=== PATIENT | female | born 1980 | race Caucasian/White ===

== ENCOUNTER 2018-07-21 08:23 | Observation (INO) ==
[2018-07-21] MEDS ORDERED: Chlorhexidine Gluconate 2% 1 Pack (2 Cloths) TOPICAL ONE (09:15)
[2018-07-21] MEDS ORDERED: Metoprolol Tartrate 25 MG Tablet PO ONE (09:15)
[2018-07-21] MEDS ORDERED: Sodium Chlor 0.9% Inj 500 ML IV.CONT ONE (09:15)
[2018-07-21] MEDS ORDERED: Gentamicin Inj 120 MG in Sodium Chlor 0.9% Inj 100 ML IV.SIG SCH (09:30)
[2018-07-21] MEDS ORDERED: Famotidine PF Inj 20 MG/2 ML Vial IV.PUSH ONE (10:15)
[2018-07-21] MEDS ORDERED: Sugammadex Inj 200 MG/2 ML Vial IV.PUSH ONE (11:19)
[2018-07-21] MEDS ORDERED: HYDROmorphone PF Inj 2 MG/ML Vial ONE (11:20)
[2018-07-21] MEDS ORDERED: Bupivacaine/Epinephrine Inj 0.25% 50 ML Vial ONE (11:38)
[2018-07-21] MEDS ORDERED: Propofol Inj 500 MG/50 ML Vial ONE (11:54)
[2018-07-21] MEDS ORDERED: Lidocaine PF 1% Inj 5 ML Syringe OTHER ONE (12:10)
[2018-07-21] MEDS ORDERED: HYDROmorphone PF Inj 1 MG/ML Ampul IV.PUSH PRN (14:50)
[2018-07-21] MEDS ORDERED: fentaNYL Citrate Inj 100 MCG/2 ML Ampul ONE (14:55)
[2018-07-21] MEDS ORDERED: ALPRAZolam 0.25 MG Tablet PO PRN (14:56)
[2018-07-21] MEDS ORDERED: *Meperidine Inj 25 MG/ML Vial PERIprocedural Use ONLY ONE (14:59)
--- NOTE | 2018-07-21 15:06 | P.OP ---
- Preoperative Diagnosis (1) Dyspareunia due to medical condition in female (2) Dysmenorrhea (3) Menorrhagia - Postoperative Diagnosis (1) Dysmenorrhea (2) Dyspareunia due to medical condition in female Date of procedure: 07/21/18 Procedure: OLGA CHOI. Anesthesia: GETA Surgeon: Yovany Gomez MD Estimated blood loss (mL): 50 Operation and Findings: Findings exam under anesthesia revealed a small anteverted uterus there was no adnexal masses. Laparoscopic exam revealed a normal uterus fallopian tubes were ligated in the midportion bilaterally. The anterior cul-de-sac had quite a bit of scarring from the previous surgeries the ovaries were normal the posterior cul-de-sac was normal upper abdomen liver and gallbladder were normal. On the right side she had a double ureter. At the end of the case we examined the ureters bilaterally and there was no dilation and peristalsis was normal. Counts were correct Estimated blood loss 50 cc Fluids were crystalloid Procedure in detail patient was identified by name band and verbally and taken to the operating theater. She is given a general anesthetic prepped and draped in the usual sterile manner for a laparoscopic assisted supracervical hysterectomy. Her Pap and ultrasound were reviewed and were normal. Examination under anesthesia was carried out with the above findings and a speculum was placed into the vagina and the anterior lip of the cervix was grasped with a single-tooth tenaculum. The cervix was dilated since it was nulliparous and a Hulka clamp was placed without difficulty. Attention was turned to the umbilical area a small subumbilical incision was made and a local anesthetic was given the 5 mm trocar was used to enter the abdomen and a pneumoperitoneum was created with 3 L of CO2. Inferior lateral to the umbilicus on the left a 10 mm port and on the right 5 mm port were placed under direct vision using Marcaine as a local anesthetic. At this point we inspected the entire pelvis and abdomen the distal ends of the fallopian tubes were removed in toto and sent to pathology the taken down bilaterally to the level of the internal cervical loss the round ligaments were taken in this area close to the ureters we carefully dissected a bladder flap there is quite a bit of adhesions in this area but I wanted to not injure the ureters. We dissected the bladder down and pushed it well out of harm's way hopefully ureters out of at the level of the internal cervical loss the uterine vessels were skeletonized and taken with harmonic scalpel. The uterus blanched nicely and we began transecting the cervix with the harmonic scalpel the Hulka clamp was removed and the specimen was removed from the cervix. Small bleeders were coagulated and using the Kleppinger we burnt the endocervical canal to prevent future bleeding. Large amount of fluid was then used to irrigate and all pedicles were dry we then placed a morcellator into the 10 mm incision and morcellated the uterus and the proximal fallopian tubes and sent for pathologic evaluation at this point we irrigated again and inspected all surgical sites they were all dry we put a sponge stick into the vagina and the ovaries were well out of the way and she should not have future dyspareunia. At this point a piece of Interceed was placed over the surgery cervical stump and the laparoscope was removed under direct vision the 10 mm port was removed and a 2- 0 Vicryl was used to close that fascia and the skin incisions were then closed with a 4-0 Monocryl in a subcuticular manner the patient tolerated the procedure well and went to the recovery room in good condition,
[2018-07-21] MEDS: HYDROmorphone PF Inj 2 MG/ML Vial IV.PUSH PRN ×2 (16:30→19:56)
[2018-07-21] MEDS ORDERED: Zolpidem Tartrate 5 MG Tablet PO PRN (21:00)
[2018-07-22] MEDS: Ibuprofen 600 MG Tablet PO PRN ×2 (00:18→06:02)
[2018-07-22 05:53] LABS: Baso % (Auto) 0.2 % (0.0-2.0); Hemoglobin 12.4 gm/dL (11.6-15.3); Lymph # (Auto) 1.3 th/mm3 (1.0-4.8); Mean Corpuscular HGB Conc 34.4 % (32.0-36.0); Mean Corpuscular Hemoglobin 30.6 pg (27.0-34.0); Mean Corpuscular Volume 89.1 fL (80.0-100.0); Mean Platelet Volume 9.3 fL (7.0-11.0); Mono # (Auto) 0.9 th/mm3 (0.0-0.9); Mono % (Auto) 7.7 % (0.0-8.0); Neut # (Auto) 9.4 th/mm3 (1.8-7.7); Neut % (Auto) 81.1 % (16.0-70.0); Platelet Count 198 th/mm3 (150-450); Red Blood Count 4.04 mil/mm3 (4.00-5.30); Red Cell Distribution Width 12.9 % (11.6-17.2); White Blood Count 11.6 th/mm3 (4.0-11.0)
[2018-07-22 06:20] LABS: Calcium 7.9 mg/dL (8.5-10.1); Carbon Dioxide 24.5 meq/L (21.0-32.0); Potassium 4.3 meq/L (3.5-5.1)
[2018-07-22 07:58] VITALS: TEMP 98
[2018-07-22 10:29] VITALS: BP 114/74; PULSE 72
[2018-07-22 10:31] VITALS: RESP 16; O2SAT 97
--- NOTE | 2018-07-22 10:52 | P.PNOB ---
Assessment and Plan - Postoperative Procedures Operation Date: 07/21/18 10:30 Actual Procedures Side Surgeon p LAPAROSCOPIC ASSISTED SUPRACERVICAL HYSTERECTOMY, BILATERAL SALPINGECTOMY Yovany Gomez MD s ADDITIONAL CARD ASSIGNED Yovany Gomez MD Postoperative status: doing well Postoperative plan: routine post-op care - Time Spent With Patient Total time spent is greater than 50% in coordination of care (as documented) at patient's floor/unit and/or counseling patient: less than 15 minutes (pt doing well, pain well managed with oral pain medications) Subjective Interval history: POD 1 Subjective: patient reports feeling better, patient has no complaints, patient desires discharge, pain is well controlled, patient is tolerating oral intake Physical Exam Vital signs: Temp Pulse Resp BP Pulse Ox 98.0 F 72 16 114/74 97 07/22/18 07:20 07/22/18 10:28 07/22/18 10:30 07/22/18 10:28 07/22/18 10:30 - Constitutional no acute distress - Routine Respiratory Exam Present: CTA bilaterally - Routine Cardiovascular Exam Present: RRR, S1, S2 - Routine Abdominal Exam Present: soft, normoactive bowel sounds Comments: dressings clean, dry and intact - Detailed Neurological Exam: Coma Scale Eye Opening: Spontaneous Verbal Response: Oriented Motor Response: Obey commands Deale Coma Scale Total: 15 - Urinary Catheter Management Indwelling Urethral Catheter Cath placed during this visit: yes, but has since been removed by the nurse Urethral indwelling: No Insertion date: 07/21/18 Removal date: 07/22/18 Removal time: 06:00 Results - Labs CBC & Chem 7: 07/22/18 05:32 07/22/18 05:32 Labs: Laboratory Results - last 24 hr 07/22/18 07/22/18 05:32 05:32 WBC 11.6 H RBC 4.04 Hgb 12.4 Hct 36.0 MCV 89.1 MCH 30.6 MCHC 34.4 RDW 12.9 Plt Count 198 MPV 9.3 Neut % (Auto) 81.1 H Lymph % (Auto) 11.0 Rosebud % (Auto) 7.7 Eos % (Auto) 0.0 Baso % (Auto) 0.2 Neut # (Auto) 9.4 H Lymph # (Auto) 1.3 Rosebud # (Auto) 0.9 Eos # (Auto) 0.0 Baso # (Auto) 0.0 WBC Differential . Differential Comment Auto diff final Sodium 138 Potassium 4.3 Chloride 107 Carbon Dioxide 24.5 Anion Gap 7 BUN 9 Creatinine 0.75 Estimated GFR 86 L Random Glucose 103 Calcium 7.9 L
== END 2018-07-22 12:27 | disposition home or self-care (01) ==
LOC: HSDI 08:23 → HSDC 08:23 → H1EA 16:05
PROVIDERS: ADMIT Obstetrics & Gynecology; ATTEND Obstetrics & Gynecology
PROC: LAPLASH (ICD-10-PCS; 2018-07-21 12:06)